=== PATIENT | female | born 1980 | race Caucasian/White ===

== ENCOUNTER → 2017-01-11 | Outpatient (CLI) | payer BC ==
[~2017-01-11] MED LIST: LRT5 PO; REVIEWED
== END | disposition home or self-care (01) ==
LOC: C.PAPS 16:44
PROVIDERS: ATTEND Obstetrics & Gynecology
DX: Z01.419 Encounter for gynecological examination (general) (routine) without abnormal findings (principal)

== ENCOUNTER 2017-08-16 14:33 | Emergency (ER) | payer BC ==
[~2017-08-16] VITALS: Ht 160 cm; Wt 60.7 kg
[2017-08-16 14:40] VITALS: TEMP 36.7; Ht 160 cm; Wt 60.7 kg
[2017-08-16] MEDS ORDERED: DiphenhydrAMINE HCL 50 MG/ML VIAL IV STA (14:55)
[2017-08-16] MEDS: SODIUM CHLORIDE 0.9% 1000ML 1,000 ML IV STA ×2 (14:55→15:58)
[2017-08-16] MEDS ORDERED: PROCHLORPERAZINE 5 MG/ML 2 ML VIAL IV STA (14:55)
[2017-08-16 15:33] LABS: BASO % 0.3 %; BASO ABS # 0.02 K/uL (0-0.2); COMPLETE YES; EOS % 1.8 %; HEMATOCRIT 37.3 % (37-47); IG% 0.2 %; LYMPH % 31.1 %; LYMPH ABS # 1.89 K/uL (1.2-3.4); MEAN CELL VOLUME 91.6 fL (80-100); MEAN CORPUSCULAR HEMOGLOBIN 31.9 pg (25-34); MEAN CORPUSCULAR HGB CONC 34.9 g/dl (32-36); MEAN PLATELET VOLUME 10.7 fL (7.4-10.4); MONO % 6.1 %; NEUT % 60.5 %; PLATELET COUNT 204 K/uL (130-400); RED BLOOD COUNT 4.07 M/uL (4.2-5.4); WHITE BLOOD COUNT 6.07 K/uL (4.8-10.8)
[2017-08-16 15:52] LABS: BUN/CREATININE RATIO 11.3 (10-20); CALCIUM 9.1 mg/dl (8.5-10.1); CREATININE 0.76 mg/dl (0.60-1.20); POTASSIUM 3.6 mmol/L (3.5-5.1)
[2017-08-16] MEDS ORDERED: GADAVIST IV PRN (17:15)
--- NOTE | 2017-08-16 17:17 | DIAGNOSTIC IMAGING REPORT ---
BRAIN COMBO CLINICAL HISTORY: expressive aphasia eval for cava mental status change COMPARISON STUDY: 03/31/2010 TECHNIQUE: Utilizing a 1.5 Aggie magnet and dedicated coil, multiplanar, multiecho imaging of the brain was performed pre and postcontrast administration. IV administration of 8 mL of Gadavist contrast was uneventful. FINDINGS: Diffusion-weighted images are considered negative for an acute ischemic event. Ventricular system is midline. Signal characteristics of the cerebellar as well as cerebral hemispheres are unremarkable. Ventricular system is midline. Sella and parasellar regions are within normal limits. Pituitary and optic scarring. Show no evidence for displacement. Postcontrast images are considered negative for an enhancing lesion. IMPRESSION: Normal study. The above report was generated using voice recognition software. It may contain grammatical, syntax or spelling errors. Electronically signed by: Jose Deleon M.D. 08/16/2017 5:15 PM Dictated Date/Time: 08/16/2017 5:12 PM
[2017-08-16 17:40] VITALS: BP 105/62; PULSE 67; O2SAT 99
--- NOTE | 2017-08-16 17:57 | EMERGENCY ROOM VISIT NOTE ---
History Report prepared by Ranjit: Antonio Macario Under the Supervision of: Dr. Rick Hurley M.D. First contact with patient: 14:43 Chief Complaint: NEURO SYMPTOMS Stated Complaint: SLURRING SPEECH,CONFUSION,HEADACHE Nursing Triage Summary: triage note: pt ambulatory to triage. pt reports at approx 1330 she was trying to have a conversation with her but none of the words she was trying to saw were coming out. pt reports now she has a headache. History of Present Illness The patient is a 37 year old female who presents to the Emergency Room with complaints of an episode of neuro symptoms that occurred prior to arrival today. The patient says that she was at work and walking to the car with her , and as soon as they got in the car and the patient was backing up the car, the patient noted that she had a 1 minute episode where she was frustrated because she could not say the words that she wanted to say. Per the patient's , the patient appeared to act "clumsy" and was trotting to the car. The patient states that she does not think that she had trouble walking. The patient was not noted to be saying any inappropriate words or words that do not exist. The patient was able to tell her that she could not say the words that she wanted to say. The patient was able to talk normally again after a minute, but right afterward, she started to get a persistent headache behind her left eye. She describes the pain as a throbbing, and almost like a migraine. She adds that she has felt tired after the episode. The patient's notes that the patient's father had a stroke in his 30s, and has been on blood thinners since his 30s. The patient states that she has been twice with no clotting issues, and has no history of blood clots. She denies any fevers, body aches, chills, vomiting, unilateral weakness or numbness, photophobia, or recent tick bites. Source of History: patient, spouse/significant other Onset: Prior to arrival today Position: other (global - neuro symptoms) Symptom Intensity: lasted 1 minute Quality: other (could not say words she wanted to say) Timing: other (episode) Associated Symptoms: + headache, + fatigue, No chills, No vomiting, No weakness, No numbness Note: Associated symptoms: Denies photophobia. Review of Systems See HPI for pertinent positives & negatives. A total of 10 systems reviewed and were otherwise negative. Past Medical & Surgical Medical Problems: (1) Lyme disease (2) No chronic diseases present Family History FH: migraines FH: stroke Social History Smoking Status: Current Some Day Smoker Marital Status: Housing Status: lives with family Occupation Status: employed Current/Historical Medications No Active Prescriptions or Reported Meds Allergies Coded Allergies: Penicillins (Verified Allergy, Intermediate, 08/16/17) Sulfa Drugs (Verified Allergy, Intermediate, 08/16/17) Sulfamethizole (Verified Allergy, Intermediate, 03/26/10) Physical Exam Vital Signs Date Time Temp Pulse Resp B/P (MAP) Pulse Ox O2 Delivery O2 Flow Rate FiO2 08/16/17 14:40 36.7 64 18 112/74 99 Room Air Physical Exam Constitutional: Vital signs reviewed. Eyes: Pupils are equal round reactive to light. Conjunctiva are noninjected. ENT: Pharynx is clear without erythema or exudate. Mucous membranes are moist. Neck supple without meningeal signs. Respiratory: Clear to auscultation bilaterally. Breath sounds are equal bilaterally. Cardiovascular: Regular rate and rhythm. No rubs or gallops. GI: Soft, nondistended and nontender. Bowel sounds are present. Musculoskeletal: No peripheral edema. No lower extremity tenderness. Integumentary: No cyanosis. Neurological: The patient is awake and alert. Cranial nerves II-XII are intact. Motor is 5 out of 5 all extremities. Sensation is intact to light touch all extremities. Normal speech. No pronator drift. No limb ataxia. Psychiatric: Normal affect. Medical Decision & Procedures ER Provider Diagnostic Interpretation: MRI results as stated below per my review and radiologist interpretation. BRAIN COMBO CLINICAL HISTORY: expressive aphasia eval for cava mental status change COMPARISON STUDY: 03/31/2010 TECHNIQUE: Utilizing a 1.5 Aggie magnet and dedicated coil, multiplanar, multiecho imaging of the brain was performed pre and postcontrast administration. IV administration of 8 mL of Gadavist contrast was uneventful. FINDINGS: Diffusion-weighted images are considered negative for an acute ischemic event. Ventricular system is midline. Signal characteristics of the cerebellar as well as cerebral hemispheres are unremarkable. Ventricular system is midline. Sella and parasellar regions are within normal limits. Pituitary and optic scarring. Show no evidence for displacement. Postcontrast images are considered negative for an enhancing lesion. IMPRESSION: Normal study. The above report was generated using voice recognition software. It may contain grammatical, syntax or spelling errors. Electronically signed by: Jose Deleon M.D. 08/16/2017 5:15 PM Dictated Date/Time: 08/16/2017 5:12 PM Laboratory Results 08/16/17 15:15 Red Blood Count 4.07, Mean Corpuscular Volume 91.6, Mean Corpuscular Hemoglobin 31.9, Mean Corpuscular Hemoglobin Concent 34.9, Mean Platelet Volume 10.7, Neutrophils (%) (Auto) 60.5, Lymphocytes (%) (Auto) 31.1, Monocytes (%) (Auto) 6.1, Eosinophils (%) (Auto) 1.8, Basophils (%) (Auto) 0.3, Neutrophils # (Auto) 3.67, Lymphocytes # (Auto) 1.89, Monocytes # (Auto) 0.37, Eosinophils # (Auto) 0.11, Basophils # (Auto) 0.02 08/16/17 15:15 Test 08/16/17 15:15 08/16/17 17:13 White Blood Count 6.07 K/uL (4.8-10.8) Red Blood Count 4.07 M/uL (4.2-5.4) Hemoglobin 13.0 g/dL (12.0-16.0) Hematocrit 37.3 % (37-47) Mean Corpuscular Volume 91.6 fL (80-100) Mean Corpuscular Hemoglobin 31.9 pg (25-34) Mean Corpuscular Hemoglobin Concent 34.9 g/dl (32-36) Platelet Count 204 K/uL (130-400) Mean Platelet Volume 10.7 fL (7.4-10.4) Neutrophils (%) (Auto) 60.5 % Lymphocytes (%) (Auto) 31.1 % Monocytes (%) (Auto) 6.1 % Eosinophils (%) (Auto) 1.8 % Basophils (%) (Auto) 0.3 % Neutrophils # (Auto) 3.67 K/uL (1.4-6.5) Lymphocytes # (Auto) 1.89 K/uL (1.2-3.4) Monocytes # (Auto) 0.37 K/uL (0.11-0.59) Eosinophils # (Auto) 0.11 K/uL (0-0.5) Basophils # (Auto) 0.02 K/uL (0-0.2) RDW Standard Deviation 41.0 fL (36.4-46.3) RDW Coefficient of Variation 12.2 % (11.5-14.5) Immature Granulocyte % (Auto) 0.2 % Immature Granulocyte # (Auto) 0.01 K/uL (0.00-0.02) Anion Gap 6.0 mmol/L (3-11) Est Creatinine Clear Calc Drug Dose 83.0 ml/min Estimated GFR () 115.3 Estimated GFR (Non- 99.5 BUN/Creatinine Ratio 11.3 (10-20) Calcium Level 9.1 mg/dl (8.5-10.1) Laboratory results as reviewed by me. Medications Administered Medications (Trade) Dose Ordered Sig/Estella Route Start Time Stop Time Status Last Admin Dose Admin Prochlorperazine Edisylate (Compazine Inj) 10 mg NOW STAT IV 08/16/17 14:55 08/16/17 14:57 DC 08/16/17 15:57 10 MG Diphenhydramine HCl (Benadryl Inj) 25 mg NOW STAT IV 08/16/17 14:55 08/16/17 14:57 DC 08/16/17 15:57 25 MG ED Course 1446: The patient was evaluated in room A10. A complete history and physical exam was performed. 1455: Ordered NSS 1000 ml @ 999 mls/hr IV, Benadryl Inj 25 mg IV, Compazine Inj 10 mg IV. 1715: Ordered Gadavist 6 mmol IV PRN. 1722: I reevaluated the patient and she says that her headache is better and has no neuro symptoms. The patient verbally expressed understanding and agreement of the treatment plan. The patient will be discharged. Medical Decision This is a 37-year-old female presents with difficulty speaking and headache. Differential diagnosis includes atypical migraine headache, intracranial mass, intracranial hemorrhage, TIA, CVA. I did perform a limited focused review of portions of the patient's old chart on the electronic medical record. The patient was diagnosed with Lyme disease in 2009. I did evaluate the patient as noted above. The patient had a transient episode where she had difficulty speaking without any other deficits. Her noted that she might of been clumsy while walking but she stated that she had no difficulty with her gait and did not feel clumsy. After neurologic symptoms resolved she developed a headache. Her symptoms seem consistent with a migraine headache but the patient does have a family history of early stroke. Her father had a stroke in his 30s. The patient is neurologically intact. IV access was established. The patient was placed on a continuous athletic monitor. I did treat patient with IV Benadryl, Compazine and normal saline. Urine testing is negative. I did order and review the patient's blood work as noted in the electronic medical record. I did order an MRI, both the brain. I did review the images myself as well as the radiology report as described above. There is no evidence of acute abnormality. I did reassess the patient. She is feeling better. I did discuss the test results with the patient. She was advised follow closely with her doctor. She was discharged in good condition and given return instructions as outlined below. Blood Pressure Screening Patient's blood pressure: Normal blood pressure Impression Primary Impression: Acute headache Additional Impression: Difficulty with speech Scribe Attestation The scribe's documentation has been prepared under my direct and personally reviewed by me in its entirety. I confirm that the note above accurately reflects all work, treatment, procedures, and medical decision making performed by me. Departure Information Dispostion Home / Self-Care Prescriptions No Active Prescriptions or Reported Meds Referrals Timothy Dutton M.D. (PCP) Patient Instructions Headache Pain, My [facility] Additional Instructions You have been examined and treated today on an emergency basis only. This is not a substitute for, or an effort to provide, complete comprehensive medical care. It is impossible to recognize and treat all injuries or illnesses in a single emergency department visit. It is therefore important that you follow up closely with your physician. Call as soon as possible for an appointment. Return for worsening symptoms or if you develop fever, numbness or weakness on one side of your body, difficulties with your speech or walking, or any other concerning symptoms. Problem Qualifiers Primary Impression: Acute headache Headache type: unspecified Intractability: not intractable Qualified Codes : R51 - Headache
== END 2017-08-16 17:40 | disposition home or self-care (01) ==
LOC: C.EDB 14:35 → C.EDA 17:40
DX: R51 Headache (principal); R47.81 Slurred speech; Z82.3 Family history of stroke; F17.200 Nicotine dependence, unspecified, uncomplicated